=== PATIENT | female | born 2000 | race African-American/Black ===

== ENCOUNTER 2023-02-09 11:38 | Emergency (ER) | payer SELFPAY ==
[~2023-02-09] VITALS: Ht 182.9 cm; Wt 72.6 kg
--- NOTE | 2023-02-09 12:11 | NUR ---
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
[2023-02-09] MEDS: CEFTRIAXONE 1 G VIAL IM ONE (12:30)
--- NOTE | 2023-02-09 12:31 | NUR ---
MEDICATED ORDERED. TOLERATED WELL.
[2023-02-09] MEDS ORDERED: LIDOCAINE /MPF 1% VIAL 5 ML VIAL ONE (12:48)
[2023-02-09] MEDS ORDERED: CEFTRIAXONE 1 G VIAL ONE (12:49)
[2023-02-09] MEDS ORDERED: EMTR1TAB12 PO (13:55)
[2023-02-09] MEDS ORDERED: DOLU50TA PO (13:55)
[2023-02-09] MEDS ORDERED: DOXY100T2 PO (13:55)
--- NOTE | 2023-02-09 14:05 | NUR ---
Patient discharged to home in stable condition. Written and verbal after care instructions given. Patient verbalizes understanding of instruction.
[2023-02-09 14:07] VITALS: BP 142/78; TEMP 98
[2023-02-15 23:06] LABS: *HIV-1 RNA BY PCR <20 copies/mL (.)
== END 2023-02-09 14:08 | disposition home or self-care (01) ==
LOC: ER 11:48
DX: Z11.3 Encounter for screening for infections with a predominantly sexual mode of transmission (principal); Z79.899 Other long term (current) drug therapy
CPT/HCPCS: 99283; 86592; 86593; 96372; 80074; 87806; 87491; 87536; J0696; J3490; 36415